=== PATIENT | female | born 1975 | race Caucasian/White ===

== ENCOUNTER 2017-03-08 11:22 | Emergency (ER) | payer OTHER ==
[2017-03-08 11:45] VITALS: BP 156/88; PULSE 83; TEMP 98.2; BMI 33.9
[2017-03-08] MEDS ORDERED: IBUPROFEN 600 MG TABLET (FP) PO ONE ×2 (12:46→12:49)
--- NOTE | 2017-03-08 12:48 | PDOC ---
History of Present Illness - General Chief Complaint: Chronic pain Stated Complaint: LT KNEE PAIN Time Seen by Provider: 03/08/17 12:09 History Source: Patient Exam Limitations: No Limitations - History of Present Illness Initial Comments: 03/08/17 12:56 While at work, [employer],, Turned to reach for something and felt an acute onset of left knee pain. States pain is primarily on the inner aspect of left knee. Occurred: reports: just prior to arrival, this morning Severity: reports: mild, moderate Pain Location: reports: lower extremity (left knee ) Method of Injury: Yes: unknown Loss of Consciousness: no loss of consciousness Associated Symptoms (Fall): denies symptoms Past History - Travel Traveled outside of the country in the last 30 days: No Close contact w/someone who was outside of country & ill: No - Past Medical History Allergies/Adverse Reactions: Allergies Allergy/AdvReac Type Severity Reaction Status Date / Time No Known Drug Allergies Allergy Verified 03/08/17 11:39 Home Medications: Ambulatory Orders Naproxen [Naprosyn -] 500 mg PO BID #14 tablet 03/08/17 Anemia: No Asthma: No Cancer: No Cardiac Disorders: No CVA: No COPD: No CHF: No Dementia: No Diabetes: No GI Disorders: No Disorders: Yes (renal calculi) HTN: No Hypercholesterolemia: No Liver Disease: No Seizures: No Thyroid Disease: No - Surgical History Abdominal Surgery: No Appendectomy: No Cardiac Surgery: No Cholecystectomy: Yes Lung Surgery: No Neurologic Surgery: No Orthopedic Surgery: No - Suicide/Smoking/Psychosocial Hx Smoking History: Never smoked Have you smoked in the past 12 months: No Hx Alcohol Use: No Drug/Substance Use Hx: No Substance Use Type: None Hx Substance Use Treatment: No Trauma Specific PMHX - Complaint Specific PMHX Arthritis: No Back Injury: No Review of Systems - Review of Systems Able to Perform ROS?: Yes Is the patient limited Montserratian proficient: Yes Constitutional: Yes: See HPI. No: Symptoms Reported HEENTM: No: Symptoms Reported Musculoskeletal: Yes: Symptoms Reported, See HPI, Joint Swelling, Joint Stiffness (left knee ) All Other Systems: Reviewed and Negative *Physical Exam - Vital Signs Last Vital Signs Temp Pulse Resp BP Pulse Ox 98.2 F 83 20 156/88 98 03/08/17 11:39 03/08/17 11:39 03/08/17 11:39 03/08/17 11:39 03/08/17 11:39 - Physical Exam General Appearance: Yes: Nourished, Appropriately Dressed, Apparent Distress, Mild Distress HEENT: positive: MARICRUZ, Normal ENT Inspection, TMs Normal, Pharynx Normal Neck: positive: Supple. negative: Tender Respiratory/Chest: positive: Lungs Clear, Normal Breath Sounds. negative: Chest Tender Gastrointestinal/Abdominal: positive: Soft Musculoskeletal: positive: Normal Inspection, Other (pain to medial collat ligament at insertion to upper aspect. With pain reproduced on varus maneuver. Neurovascular intact distal to injury. Patella is mobile, without crepitus or step-offs, however knee capsule is mildly swollen. Unable to examine anterior drawer test.) Extremity: positive: Normal Capillary Refill, Normal Range of Motion. negative : Normal Inspection Integumentary: positive: Normal Color, Warm, Pale Neurologic: positive: tear down matcher II-XII NML intact, Fully Oriented, Alert, Normal Mood/ Affect, Normal Response, Motor Strength 09/10 ED Treatment Course - RADIOLOGY Radiology Studies Ordered: Category Date Time Status KNEE 3 POS-LEFT [RAD] Stat Radiology 03/08/17 12:47 Ordered Progress Note - Progress Note Progress Note: Left knee sprain, we'll treat with NSAIDs, immobilizer and have follow up with Orth0 *DC/Admit/Observation/Transfer Diagnosis at time of Disposition: Sprain of left knee Qualifiers: Encounter type: initial encounter Involved ligament of knee: medial collateral ligament Qualified Code(s): S83.412A - Sprain of medial collateral ligament of left knee, initial encounter - Discharge Dispostion Disposition: HOME Condition at time of disposition: Stable Admit: No - Prescriptions Prescriptions: Naproxen [Naprosyn -] 500 mg PO BID #14 tablet - Referrals Referrals: Maria Del Rosario Villegas [Primary Care Provider] - Tavon Elizondo MD [Staff Physician] - - Patient Instructions Printed Discharge Instructions: DI for Knee Sprain Additional Instructions: Rest, ice to area on and off for 15 minutes 4-6 times a day Avoid heavy lifting or exercise until pain and swelling is resolved or until further directed Keep area highly elevated to reduce swelling Use splints/Garfield wrap as directed Followup with orthopedist in one to 2 days if not improving, if significantly improved may wait one week for followup with orthopedist May use ibuprofen 2-200 mg tablets every 6 hours as needed for pain - Post Discharge Activity Forms/Work/School Notes: Back to Work
== END 2017-03-08 13:10 | disposition home or self-care (01) ==
LOC: JERFT 11:22
PROC: 2W3RXYZ Immobilization of Left Lower Leg using Other Device (ICD-10-PCS; principal; 2017-03-08)
DX: S83.412A Sprain of medial collateral ligament of left knee, initial encounter (principal); X50.1XXA Overexertion from prolonged static or awkward postures, initial encounter; Y93.89 Activity, other specified; Y92.89 Other specified places as the place of occurrence of the external cause; Y99.0 Civilian activity done for income or pay
CPT/HCPCS: 73562-TC-LT; 99281-25

== ENCOUNTER 2017-08-23 00:36 | Emergency (ER) | payer BC ==
[2017-08-23 00:43] VITALS: BP 154/89; PULSE 90; TEMP 98.5; BMI 35.5
[2017-08-23] MEDS ORDERED: KETOROLAC TROMETHAMINE 60 MG/2 ML VIAL IM ONE (00:47)
[2017-08-23] MEDS ORDERED: KETOROLAC TROMETHAMINE 60 MG/2 ML VIAL ONE (00:48)
--- NOTE | 2017-08-23 00:50 | PDOC ---
History of Present Illness - General Chief Complaint: Pain, Acute Stated Complaint: PAIN JAW LINE X 4 HOURS Time Seen by Provider: 08/23/17 00:44 History Source: Patient Exam Limitations: No Limitations (or) - History of Present Illness Initial Comments: 08/23/17 00:47 This is a 42-year-old female who comes in complaining of pain in the left side of her face radiating towards her head. Patient denies any trauma or injury. Patient said she had sudden onset of the pain. Patient took some Percocet and Aleve for the improvement in her symptoms. Patient otherwise is healthy and denies any fevers or chills, nausea vomiting or diarrhea. PAST MEDICAL HISTORY: no significant history PAST SURGICAL HISTORY: no significant history FAMILY HISTORY: no pertinant history SOCIAL HISTORY: Pt lives with family and is employed. MEDICATIONS: reviewed ALLERGIES: As per nursing notes Review of Systems General: No fevers or chills, no weakness, no weight loss HEENT: No change in vision. No sore throat,. No ear pain CardioVascular: No chest pain or shortness of breath Respiratory:No cough, or wheezing. Gastrointestinal: no nausea, vomitting, diarrhea or constipation, No rectal bleeding Genitourinary: No dysuria, hematuria, or frequency Musculoskeletal: No joint or muscle pain or swelling Neurologic: No headache, vertigo, dizziness or loss of consciousness Psychiatric: nor depression Skin: No rashes or easy bruising Endocrine: no increased thirst or abnormal weight change Allergic: no skin or latex allergy All other systems reviewed and normal GENERAL: The patient is awake, alert, and fully oriented, in no acute distress. HEAD: Normal with no signs of trauma. MOUTH: There is no pain on palpation of the teeth or jaw. There is no tenderness swelling or increase in warmth. EYES: Pupils equal, round and reactive to light, extraocular movements intact, sclera anicteric, conjunctiva clear. EXTREMITIES: Normal range of motion, no edema. NEUROLOGICAL: Normal speech, normal gait. grossly intact PSYCH: Normal mood, normal affect. SKIN: Warm, Dry, normal turgor, no rashes or lesions noted. Assessment and plan: This is a 42-year-old female comes in complaining in the left side of her face. It is uncertain as to the etiology of the pain however she appears to be comfortable. Emergency room. She was given a shot of Toradol and discharged home to told to follow-up with the dentist to the morning. Past History - Past Medical History Allergies/Adverse Reactions: Allergies Allergy/AdvReac Type Severity Reaction Status Date / Time No Known Drug Allergies Allergy Verified 08/23/17 00:37 Home Medications: Ambulatory Orders NK [No Known Home Medication] 08/23/17 Anemia: No Asthma: No Cancer: No Cardiac Disorders: No CVA: No COPD: No CHF: No Dementia: No Diabetes: No GI Disorders: No Disorders: Yes (renal calculi) HTN: No Hypercholesterolemia: No Liver Disease: No Seizures: No Thyroid Disease: No - Surgical History Abdominal Surgery: No Appendectomy: No Cardiac Surgery: No Cholecystectomy: Yes Lung Surgery: No Neurologic Surgery: No Orthopedic Surgery: No - Suicide/Smoking/Psychosocial Hx Smoking History: Never smoked Have you smoked in the past 12 months: No Information on smoking cessation initiated: No Hx Alcohol Use: No Drug/Substance Use Hx: No Substance Use Type: None Hx Substance Use Treatment: No Trauma Specific PMHX - Complaint Specific PMHX Arthritis: No Back Injury: No *Physical Exam - Vital Signs Last Vital Signs Temp Pulse Resp BP Pulse Ox 98.5 F 90 16 154/89 99 08/23/17 00:39 08/23/17 00:39 08/23/17 00:39 08/23/17 00:39 08/23/17 00:39 *DC/Admit/Observation/Transfer Diagnosis at time of Disposition: Mouth pain - Discharge Dispostion Disposition: HOME Condition at time of disposition: Stable Admit: No - Referrals - Patient Instructions Additional Instructions: If pain worsens U can take Tylenol or Motrin.. Return to the emergency department immediately with ANY new, persistent or worsening symptoms. Continue any medications as previously prescribed by your physician. You should follow up with your primary doctor as soon as possible regarding today's emergency department visit. . Please make sure your doctor reviews the results of your emergency evaluation. Thank you for coming to the Emergency Department today for your care. It was a pleasure to see you today. Please note that your evaluation is INCOMPLETE until you follow-up with your doctor. - Post Discharge Activity
== END 2017-08-23 00:52 | disposition home or self-care (01) ==
LOC: FER 00:36
PROC: 3E0233Z Introduction of Anti-inflammatory into Muscle, Percutaneous Approach (ICD-10-PCS; principal; 2017-08-23)
DX: K13.79 Other lesions of oral mucosa (principal)
CPT/HCPCS: 99281-25

== ENCOUNTER 2019-02-14 06:32 | Day surgery (SDC) | payer BC ==
--- NOTE | 2019-02-08 09:24 | HP ---
DATE OF ADMISSION: 02/14/2019 REASON FOR ADMISSION: Soft tissue mass on the back. BRIEF HISTORY: This is a 43-year-old female who noted soft tissue mass on her left back for over 6 months now. The mass has gotten doubled in size over this six-month time course, and it is causing her discomfort at this point. She wishes to have this removed and tested to rule out for carcinoma. PAST MEDICAL HISTORY: No coronary artery disease, hypertension, or diabetes. PAST SURGICAL HISTORY: Cholecystectomy. Surgery of the foot. Sphincterotomy. ALLERGIES: None. 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 She does not smoke. No history of drug use. She drinks socially. MEDICATION: None. ALLERGIES: None. PHYSICAL EXAMINATION: BACK: Patient has a soft tissue mass the size of larger than a golf ball on the left lobe back. It is approximately 2-3 fingerbreadths to the left of the midline, and 4 fingerbreadths above the anterior iliac crest. The mass is soft, fixed posteriorly, no overlying skin changes, fairly well demarcated. IMPRESSION/PLAN: Soft tissue mass in the back: This is a 43-year-old female with doubling in size of soft tissue mass of the back. This doubling occurred in six months' time course. She now has pain in the area. 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 However, a liposarcoma cannot be entirely ruled out. Therefore I agree with this patient and should have this excised. The indications, alternatives, and complications of procedure discussed. Questions answered. Will plan on obtaining written consent the day of surgery. HUSSEIN CHOU M.D. [id number]
[2019-02-12 17:28] VITALS: BMI 38.7
[2019-02-14] MEDS ORDERED: ceFAZolin SODIUM 1 GM VIAL ONE ×2 (07:02→08:10)
[2019-02-14] MEDS ORDERED: MIDAZOLAM HCL 2 MG/2 ML SINGLE DOSE VIAL ONE ×2 (07:19→08:05)
[2019-02-14] MEDS ORDERED: SUCCINYLCHOLINE CHLORIDE 200 MG/10 ML SYRINGE ONE (07:19)
[2019-02-14] MEDS ORDERED: PROPOFOL 20 ML ONE (07:19)
[2019-02-14] MEDS ORDERED: LIDOCAINE 1%-EPI 1:100,000 30 ML MDV IJ ONE (07:23)
[2019-02-14] MEDS ORDERED: BUPIVACAINE HCL/PF 0.5% (5 MG/ML) 30 ML VIAL IJ ONE (07:24)
[2019-02-14] MEDS ORDERED: LIDOCAINE HCL 1%, 10 MG/ML (20ML VIAL) ONE (07:54)
[2019-02-14] MEDS ORDERED: BUPIVACAINE HCL/PF 0.25% (2.5MG/ML) 10 ML VIAL ONE (07:59)
[2019-02-14] MEDS ORDERED: DEXAMETHASONE SOD PHOSPHATE/PF 10 MG/ML SDV ONE (07:59)
[2019-02-14] MEDS ORDERED: ceFAZolin SODIUM 1 GM VIAL IVPB ONE ×2 (08:15)
[2019-02-14] MEDS ORDERED: LIDOCAINE HCL 1%, 10 MG/ML (20ML VIAL) NR ONE ×2 (08:20)
[2019-02-14] MEDS ORDERED: BUPIVACAINE HCL/PF 0.25% (2.5MG/ML) 10 ML VIAL IJ ONE (08:20)
[2019-02-14] MEDS ORDERED: DEXAMETHASONE SOD PHOSPHATE 10 MG/1 ML VIAL IVPUSH ONE (08:21)
[2019-02-14 08:51] VITALS: TEMP 97.7
[2019-02-14] MEDS ORDERED: oxyCODONE HCL 5 MG TABLET PO PRN (10:06)
[2019-02-14] MEDS ORDERED: ONDANSETRON 4 MG/2 ML VIAL IVPUSH PRN (10:06)
[2019-02-14] MEDS ORDERED: LACTATED RINGERS SOLUTION 1,000 ML IV SCH (10:15)
--- NOTE | 2019-02-14 10:33 | OP ---
DATE OF OPERATION: 02/14/2019 PREOPERATIVE DIAGNOSIS: Soft tissue mass of the back, suspect intramuscular lipoma. POSTOPERATIVE DIAGNOSIS: Intramuscular lipoma. PROCEDURE: Excision of intramuscular lipoma with 8-cm intermediate wound closure. SURGEON: Quinn Loomis MD FINANCE ANALYST: None. ANESTHESIA: Jayda Wall MD (MAC/1% lidocaine without epinephrine approximately 10 mL and 20 mL of 0.25% Marcaine with 4 mg of Decadron). ESTIMATED BLOOD LOSS: Minimal. SPECIMENS: Lipoma. INDICATION FOR PROCEDURE: This is a 44-year-old female with a soft tissue mass in the left lower [id number] back. It is causing her discomfort. She wishes to have this removed. DESCRIPTION OF PROCEDURE: Patient identified and appropriately positioned on the operating room table. After placement of IV sedation, the back prepped and draped in usual sterile fashion with ChloraPrep, 1% lidocaine without epinephrine was used for anesthesia approximately 10 mL. An 8-cm incision overlying the mass was deepened to subcutaneous tissue. You could see the mass protruding through the attenuated fascia of the musculature. This mass clearly was an intramuscular lipoma. The attenuated fascia was sharply divided. The mass then teased out of the musculature. Hemostasis achieved with cautery as needed. The mass was handed off en bloc. Next, the fascia of the muscle was then subsequently injected with a total of 20 mL of 0.25% Marcaine with 4 mg of Decadron given as a local block. Next, the musculature was then reapproximated with interrupted 3-0 chromic sutures. [place] was reapproximated with interrupted inverted 3-0 Vicryl sutures and the skin closed with interrupted vertical mattress 3-0 Prolenes. Length of incision 8 cm. At the conclusion of this case, sponge counts correct. ATTESTATION: Brief operative note handwritten on the preprinted form. [facility] queried prior to giving narcotics. Steph SPRAGUE [id number]
[2019-02-14 10:44] VITALS: BP 120/70; PULSE 80
--- NOTE | 2019-02-15 18:10 | PATH ---
Surgical Pathology Report Patient Name: JARRETT GUTIERREZ [facility]. Rec. #: [id number] /Age/Gender: 1975 (Age: 44) / F Account: [id number] Location: U SURGICAL Taken: 02/14/2019 Received: 02/14/2019 Reported: 02/15/2019 Physicians: Quinn Loomis Specimen(s) Received LEFT BACK MASS Clinical History Benign neoplasm of connective and soft tissue of trunk Final Diagnosis MASS, BACK, LEFT, EXCISION: MATURE FIBROADIPOSE TISSUE CONSISTENT WITH LIPOMA. Electronically Signed Jennifer Henao M.D. Gross Description Received in formalin labeled "mass of left back" is a lobulated, thinly encapsulated fibroadipose tissue measuring 4.5 x 3 x 2 cm. Sectioning is yellow fatty and grossly unremarkable. No necrosis or hemorrhage identified. Rn Orthopaedic sections are submitted in one cassette. MLAnaliZ/02/14/2019 sanjuan/02/14/2019
== END 2019-02-14 10:44 | disposition home or self-care (01) ==
LOC: JASU-SURG 06:32
PROVIDERS: ATTEND Surgery
PROC: 0KBG0ZZ Excision of Left Trunk Muscle, Open Approach (ICD-10-PCS; principal; 2019-02-14 08:00)
DX: D17.9 Benign lipomatous neoplasm, unspecified (principal)
CPT/HCPCS: 84703; J1100

== ENCOUNTER 2019-03-11 09:29 | Emergency (ER) | payer BC, OTHER ==
[2019-03-11 09:36] VITALS: BMI 37.1
[2019-03-11] MEDS ORDERED: SODIUM CHLORIDE 1,000 ML IV ONE (09:48)
[2019-03-11] MEDS ORDERED: ACETAMINOPHEN 1000 MG/100 ML VIAL (NON FORMULARY) IVPB ONE (09:50)
[2019-03-11] MEDS ORDERED: ACETAMINOPHEN INJECTION 100 ML IVPB ONE (09:51)
--- NOTE | 2019-03-11 09:51 | PDOC ---
History of Present Illness - General Chief Complaint: Pain, Acute Stated Complaint: KIDNEY STONES Time Seen by Provider: 03/11/19 09:47 - History of Present Illness Initial Comments: 03/11/19 10:07 Pt is a 44 y/o F with a PMH of nephrolithiasis (lithotripsy ~5 years ago) who presents to [facility] due to right flank pain. Pt endorses that she began to experience excruciating pain at around 1:30 this morning. Pt states that pain is described as sharp in nature, 10/10 in pain severity at its zenith and radiates to her right groin. Pt endorses she took a hydromorphone pill when the pain commenced; this mitigated her pain for a while however pt still had pain and this is what prompted her to come to our Emergency department. Pt has vomited multiple times since pain commenced. Pt does endorse having had kidney stones in the past, approximately 5 years ago. States she underwent a lithotripsy. Pt does state she has been on a high-protein weight loss diet. Denies fever or chills. Endorses nausea and vomiting. SurgHx- Cholecystectomy, Lipoma removal, Knee surgery SocialHx- Denies Tobacco or Alcohol use NKDA FH- CAD, HTN, DM on both sides of family. +Kidney stones Mother. Past History - Past Medical History Allergies/Adverse Reactions: Allergies Allergy/AdvReac Type Severity Reaction Status Date / Time No Known Drug Allergies Allergy Verified 03/11/19 09:36 Home Medications: Ambulatory Orders Cephalexin [Keflex] 500 mg PO BID #14 capsule 03/11/19 Norethindrone-E.estradiol-Iron [Lo Loestrin Fe 1-10 Tablet] 1 tab PO DAILY 03/11 Ondansetron HCl [Zofran] 4 mg PO Q8H PRN #10 tablet 03/11/19 Phentermine HCl 1 tab PO DAILY 03/11/19 Tamsulosin HCl [Flomax] 0.4 mg PO DAILY #10 cap.er.24h 03/11/19 Anemia: No Asthma: No Cancer: No Cardiac Disorders: No CVA: No COPD: No CHF: No Dementia: No Diabetes: No GI Disorders: No Disorders: Yes (renal calculi) HTN: No Hypercholesterolemia: No Liver Disease: No Seizures: No Thyroid Disease: No - Surgical History Abdominal Surgery: No Appendectomy: No Cardiac Surgery: No Cholecystectomy: Yes Lung Surgery: No Neurologic Surgery: No Orthopedic Surgery: Yes (right knee arthroscopy x 2) - Psycho Social/Smoking Cessation Hx Smoking History: Never smoked Have you smoked in the past 12 months: No Hx Alcohol Use: No (social) Drug/Substance Use Hx: No Substance Use Type: None Hx Substance Use Treatment: No Review of Systems - Review of Systems Able to Perform ROS?: Yes Is the patient limited Maori proficient: No Constitutional: No: Chills, Fever Respiratory: No: Shortness of Breath Cardiac (ROS): No: Chest Pain ABD/GI: Yes: Nausea, Other : Yes: Flank Pain (Right Flank Pain ) *Physical Exam - Vital Signs Last Vital Signs Temp Pulse Resp BP Pulse Ox 97.7 F 89 18 148/64 99 03/11/19 09:34 03/11/19 09:34 03/11/19 09:34 03/11/19 09:34 03/11/19 09:34 - Physical Exam Comments: 03/11/19 10:22 AAOx3, Moderate Distress EOMI Sclera Clear RRR S1S2 CTA b/l ++R CVA tenderness. No guarding or rebound appreciated. ED Treatment Course - LABORATORY CBC & Chemistry Diagram: 03/11/19 09:56 03/11/19 09:56 Medical Decision Making - Medical Decision Making 03/11/19 10:03 DDx includes but not limited to Nephrolithiasis, appendicitis, ovarian torsion. Routine labs ordered: CBC w/ diff, CMP, Serum preg, Urine culture Will order ofirmev and 2 mg morphine for analgesia 03/11/19 10:07 Will order CTAP once preg ruled out 03/11/19 10:13 Will order 2 mg more of morphine as pt with excruciating pain. 03/11/19 10:20 Will add Zofran as pt nauseas 03/11/19 12:13 CTAP--> Right obstructing 5.5x4 cm stone UVJ with resulting hydro. Urology Contacted. 03/11/19 12:15 Pt endorsing pain is reoccurring. Will administer another 2 mg Morphine. 03/11/19 12:26 Spoke with Urology. Will administer 1 gm ceftriaxone and continue to control pain. Pt can be d/c'ed and to follow up in am with Dr Mcghee . 03/11/19 12:30 Will send patient home with 1 tab bid 500 mg for 14 days keflex, flomax 0.4 daily,and zofran for nausea 03/11/19 12:34 Discharge - Discharge Information Problems reviewed: Yes Clinical Impression/Diagnosis: Kidney calculi Condition: Improved Disposition: HOME - Admission No - Additional Discharge Information Prescriptions: Cephalexin [Keflex] 500 mg PO BID #14 capsule Ondansetron HCl [Zofran] 4 mg PO Q8H PRN #10 tablet PRN Reason: Nausea And/Or Vomiting Tamsulosin HCl [Flomax] 0.4 mg PO DAILY #10 cap.er.24h - Follow up/Referral Referrals: Aaron Villegas MD [Primary Care Provider] - Max Mckay MD [Staff Physician] - - Patient Discharge Instructions Additional Instructions: You were treated in the Emergency Room for a kidney stone. We have sent an antibiotic prescription, a anti-nausea medication, and a medication to help you pass your stone. It is very important for you to see your Urologist, Dr Mcghee tomorrow. A referral has been provided for you in your discharge papers. Please return to the ER if you begin to develop fevers or your symptoms progress or worsen. - Post Discharge Activity
[2019-03-11] MEDS ORDERED: ONDANSETRON 4 MG/2 ML VIAL ONE (10:02)
[2019-03-11] MEDS ORDERED: MORPHINE SULFATE 2 MG/ML VIAL ONE ×3 (10:02→12:18)
[2019-03-11] MEDS ORDERED: morphine CARPU-JECT 4 MG/1 ML DISP.SYRIN IVPUSH ONE (10:03)
[2019-03-11 10:09] LABS: BASO % 0.5 % (0-2.0); EOS % 0.3 % (0-4.5); HEMATOCRIT 40.5 % (32.4-45.2); HEMOGLOBIN 14.1 GM/dL (10.7-15.3); LYMPH % 14.4 % (8-40); MCH 30.9 pg (25.7-33.7); MCHC 34.9 g/dl (32.0-36.0); MEAN CELL VOLUME 88.7 fl (80-96); MEAN PLT VOLUME 7.7 fl (7.5-11.1); MONO % 5.5 % (3.8-10.2); NEUT % 79.3 % (42.8-82.8); PLATELET COUNT 303 K/MM3 (134-434); RBC 4.57 M/mm3 (3.60-5.2); RDW 13.7 % (11.6-15.6); WHITE BLOOD COUNT 12.6 K/mm3 (4.0-10.0)
[2019-03-11] MEDS ORDERED: morphine CARPU-JECT 2 MG/1 ML DISP.SYRIN IVPUSH ONE ×2 (10:13→12:15)
[2019-03-11] MEDS ORDERED: ONDANSETRON 4 MG/2 ML VIAL IVPUSH ONE (10:20)
[2019-03-11] MEDS ORDERED: KETOROLAC TROMETHAMINE 30 MG/1 ML VIAL IVPUSH ONE (10:22)
[2019-03-11 10:35] LABS: ALBUMIN 3.9 g/dl (3.4-5.0); BILIRUBIN,TOTAL 0.4 mg/dL (0.2-1); BLOOD UREA NITROGEN 16.7 mg/dL (7-18); POTASSIUM 4.2 mmol/L (3.5-5.1); TOT PROT 7.4 g/dl (6.4-8.2)
--- NOTE | 2019-03-11 10:42 | PDOC ---
Documentation entered by Julian Andrade SCRIBE, acting as scribe for Adelia Woody DO. Adelia Woody DO: This documentation has been prepared by the Raymond hernandez Daniel, SCRIBE, under my direction and personally reviewed by me in its entirety. I confirm that the documentation accurately reflects all work, treatment, procedures, and medical decision making performed by me. Attending Attestation - Resident Resident Name: Mumtaz Donaldson - ED Attending Attestation I have performed the following: I have examined & evaluated the patient, The case was reviewed & discussed with the resident, I agree w/resident's findings & plan, Exceptions are as noted - HPI HPI: 03/11/19 10:33 The patient is a 44 year old female with a past medical history of nephrolithiasis (last episode 5 years ago) here today for evaluation of right flank pain. The patient reports that she has been on a keto diet for the past couple of months and woke up around 1:30 AM today with right flank pain and urinary urgency. She also notes a couple episodes of non bloody non bilious vomiting and dysuria. Patient has needed lithotripsy in the past. Patient denies headache, lightheadedness. Denies fever, chills. Denies chest pain, shortness of breath. Denies diarrhea. Allergies: NKDA PCP: Aaron Villegas Urologist: Jose Tubbs - Physicial Exam PE: 03/11/19 10:33 Constitutional: Awake, alert, oriented. No acute distress. Head: Normocephalic. Atraumatic Eyes: PERRL. EOMI. Conjunctivae are not pale. ENT: Mucous membranes are moist and intact. Posterior pharynx without exudates or erythema. Uvula midline. Neck: Supple. Full ROM. No lymphadenopathy. Cardiovascular: Regular rate. Regular rhythm. S1, S2 regular. Distal pulses are 2+ and symmetric. Pulmonary/Chest: No evidence of respiratory distress. Clear to auscultation bilaterally No wheezing, rales or rhonchi. Abdominal: +right lower quadrant and right flank tenderness. Soft and non- distended. No rebound, guarding or rigidity. No organomegaly. No palpable masses. Good bowel sounds. Back: +right CVA tenderness. Musculoskeletal: No edema. No cyanosis. No clubbing. Full range of motion in all extremities. Nocalf tenderness. Radial/pedal pulses are intact and 2+ bilaterally Skin: Skin is warm and dry. No petechiae. No purpura. Neurological: Alert and oriented to person, place, and time. Cranial nerves II -XII are grossly intact. Normal speech. Strength is grossly symmetric. No sensory deficits. Psychiatric: Good eye contact. Normal interaction, affect and behavior. - Medical Decision Making 03/11/19 10:39 I, Dr. Adelia Woody, DO, attest that this document has been prepared under my direction and personally reviewed by me in its entirety. I further attest, that it accurately reflects all work, treatment, procedures and medical decision -making performed by me. a/p: 44yo female with hx of nephrolithiasis - last stone 5 years ago -follows with DR. Landon -R flank pain - acute onset -suspect renal colic -urinary hesitancy/denies dysuria or hematuria - states ending her menstrual cycle -assoc with n/v -will send labs, ct abd/pelvis -pain control, ivf hydration, flomax if stone low down in ureter 03/11/19 10:49 renal function normal, mildly elevated wbc most likely 2nd to pain ua pending preg neg pt to spiral ct 03/11/19 12:20 5.5mm stone obstructing at UVJ - will add flomax and rocephin resident discussed the case with Dr. Mckay who recommends strain all urine and follow up tomorrow 03/11/19 12:46 pt states feeling better stable for dc to home and follow up with urology tomorrow
[2019-03-11] MEDS ORDERED: KETOROLAC TROMETHAMINE 30 MG/1 ML VIAL ONE (10:47)
[2019-03-11 11:27] LABS: EPI CELLS 5.1 /HPF (0-5/HPF); HYALINE CASTS 1 /lpf (0-8); PH,URINE 6.5 (5.0-8.0); URINE APPEARANCE CLEAR; URINE BACTERIA 57.6 /hpf (NEGATIVE); URINE BILIRUBIN NEGATIVE (NEGATIVE); URINE COLOR YELLOW; URINE GLUCOSE (UA) NEGATIVE (NEGATIVE); URINE KETONE 1+ (NEGATIVE); URINE LEUK ESTERASE NEGATIVE (NEGATIVE); URINE NITRITE NEGATIVE (NEGATIVE); URINE PROTEIN NEGATIVE (NEGATIVE); URINE RBC 7 /hpf (0-4); URINE UROBILINOGEN 0.2 mg/dL (0.2-1.0); URINE WBC 3 /hpf (0-5)
[2019-03-11 12:16] VITALS: BP 120/77; PULSE 75; TEMP 98
[2019-03-11] MEDS ORDERED: TAMSULOSIN HCL 0.4 MG CAP PO ONE (12:20)
[2019-03-11] MEDS ORDERED: CEFTRIAXONE 1 GM in DEXTROSE 5%-WATER - 100 ML IVPB ONE (12:21)
[2019-03-11] MEDS ORDERED: TAMSULOSIN HCL 0.4 MG CAP ONE (12:29)
[2019-03-11] MEDS ORDERED: CEFTRIAXONE 1 GM/50 ML BAG ONE (12:30)
== END 2019-03-11 13:07 | disposition home or self-care (01) ==
LOC: JER 09:29
PROC: 3E03329 Introduction of Other Anti-infective into Peripheral Vein, Percutaneous Approach (ICD-10-PCS; principal; 2019-03-11)
PROC: 3E033NZ Introduction of Analgesics, Hypnotics, Sedatives into Peripheral Vein, Percutaneous Approach (ICD-10-PCS; 2019-03-11)
PROC: 3E0333Z Introduction of Anti-inflammatory into Peripheral Vein, Percutaneous Approach (ICD-10-PCS; 2019-03-11)
PROC: 3E033GC Introduction of Other Therapeutic Substance into Peripheral Vein, Percutaneous Approach (ICD-10-PCS; 2019-03-11)
PROC: 3E033NZ Introduction of Analgesics, Hypnotics, Sedatives into Peripheral Vein, Percutaneous Approach (ICD-10-PCS; 2019-03-11)
DX: N13.2 Hydronephrosis with renal and ureteral calculous obstruction (principal); Z87.442 Personal history of urinary calculi
CPT/HCPCS: 36415; 74176-TC; 80053; 81003; 84703; 85025; 87086; 99284-25; J0131; J7030

== ENCOUNTER 2020-12-12 15:13 | Inpatient (IN) | payer BC, OTHER ==
[2020-12-12] MEDS ORDERED: DEXAMETHASONE SOD PHOSPHATE 10 MG/1 ML VIAL IVPUSH ONE (15:26)
[2020-12-12] MEDS ORDERED: DEXAMETHASONE SOD PHOSPHATE 10 MG/1 ML VIAL ONE (15:40)
[2020-12-12 16:02] LABS: VENOUS BASE EXCESS 3.8 mmol/L (-2-2); VENOUS O2 SATURATION 29.5 % (70-80); VENOUS PCO2 32.9 mmHg (38-52); VENOUS PH 7.518 (7.310-7.410)
[2020-12-12 16:04] LABS: BASO % 0.2 % (0-2.0); HEMATOCRIT 42.8 % (32.4-45.2); HEMOGLOBIN 14.9 GM/dL (10.7-15.3); LYMPH % 24.9 % (8-40); MCH 30.2 pg (25.7-33.7); MCHC 34.9 g/dl (32.0-36.0); MEAN CELL VOLUME 86.7 fl (80-96); MONO % 8.5 % (3.8-10.2); NEUT % 66.4 % (42.8-82.8); PLATELET COUNT 226 10^3/uL (134-434); RBC 4.94 M/mm3 (3.60-5.2); RDW 13.2 % (11.6-15.6); WHITE BLOOD COUNT 3.5 K/mm3 (4.0-10.0)
[2020-12-12 16:10] LABS: INR 1.12 (0.83-1.09); PROTHROMBIN TIME (PATIENT) 13.5 SEC (9.7-13.0)
[2020-12-12 16:13] LABS: ACTIVATED PTT 30.2 SECONDS (25.2-36.5)
[2020-12-12 16:21] LABS: CHLORIDE 103 mmol/L (98-107); SODIUM 139 mmol/L (136-145)
[2020-12-12 16:24] LABS: ALBUMIN 3.4 g/dl (3.4-5.0); ANION GAP 11 MMOL/L (8-16); BLOOD UREA NITROGEN 8.1 mg/dL (7-18); CO2 25 mmol/L (21-32); GLUCOSE,RANDOM 110 mg/dL (74-106)
[2020-12-12 16:27] LABS: CREATININE 0.8 mg/dL (0.55-1.3); SGOT/AST 217 U/L (15-37); SGPT/ALT 149 U/L (13-61)
[2020-12-12 16:28] LABS: BILIRUBIN,TOTAL 0.5 mg/dL (0.2-1); LDH 429 U/L (84-246); TOT PROT 7.8 g/dl (6.4-8.2)
[2020-12-12 16:30] LABS: ALK PHOS 112 U/L (45-117)
[2020-12-12 16:32] LABS: N-TERMINAL BNP 36.6 pg/ml (5-125)
[2020-12-12] MEDS ORDERED: ONDANSETRON 4 MG/2 ML VIAL IVPUSH ONE (16:39)
[2020-12-12] MEDS ORDERED: ONDANSETRON 4 MG/2 ML VIAL ONE (16:50)
[2020-12-12 21:45] LABS: CALCIUM 7.9 mg/dL (8.5-10.1)
[2020-12-12 21:46] LABS: ALBUMIN 3.2 g/dl (3.4-5.0); BLOOD UREA NITROGEN 8.6 mg/dL (7-18); MAGNESIUM 2.1 mg/dL (1.8-2.4)
[2020-12-12 21:49] LABS: CREATININE 0.6 mg/dL (0.55-1.3)
[2020-12-12 21:50] LABS: BILIRUBIN,TOTAL 0.4 mg/dL (0.2-1); TOT PROT 7.2 g/dl (6.4-8.2)
[2020-12-12] MEDS: SODIUM CHLORIDE 0.9%/KCL 20 MEQ/1,000 ML INFUS.BAG IV SCH (22:55)
[2020-12-12] MEDS: KCL 10 MEQ IVPB 10 MEQ/100 ML INFUS.BAG IVPB SCH (22:55)
[2020-12-13] MEDS: KCL 10 MEQ IVPB 10 MEQ/100 ML INFUS.BAG IVPB SCH (00:40)
[2020-12-13] MEDS ORDERED: PHENTERMINE HCL 37.5 MG PO SCH (10:00)
[2020-12-13 10:05] LABS: BASO % 0.2 % (0-2.0); HEMATOCRIT 40.7 % (32.4-45.2); HEMOGLOBIN 14.1 GM/dL (10.7-15.3); LYMPH % 18.2 % (8-40); MCH 30.4 pg (25.7-33.7); MCHC 34.6 g/dl (32.0-36.0); MEAN CELL VOLUME 87.8 fl (80-96); MEAN PLT VOLUME 7.1 fl (7.5-11.1); MONO % 8.2 % (3.8-10.2); NEUT % 73.4 % (42.8-82.8); PLATELET COUNT 232 10^3/uL (134-434); RBC 4.64 M/mm3 (3.60-5.2); RDW 13.3 % (11.6-15.6); WHITE BLOOD COUNT 4.4 K/mm3 (4.0-10.0)
[2020-12-13 10:23] LABS: ALBUMIN 3.1 g/dl (3.4-5.0); BLOOD UREA NITROGEN 8.5 mg/dL (7-18); CALCIUM 7.9 mg/dL (8.5-10.1)
[2020-12-13 10:26] LABS: CREATININE 0.6 mg/dL (0.55-1.3)
[2020-12-13 10:28] LABS: BILIRUBIN,TOTAL 0.4 mg/dL (0.2-1)
[2020-12-13] MEDS ORDERED: REMDESIVIR 200 MG in SODIUM CHLORIDE 250 ML IVPB ONE (11:30)
[2020-12-13] MEDS: ENOXAPARIN NA (PORCINE) 40 MG/0.4 ML DISP.SYRIN SQ SCH (11:46)
[2020-12-13] MEDS: DEXAMETHASONE SOD PHOSPHATE 4 MG/1 ML VIAL IVPUSH SCH (11:46)
[2020-12-13] MEDS: SODIUM CHLORIDE 0.9%/KCL 20 MEQ/1,000 ML INFUS.BAG IV SCH (11:47)
[2020-12-13] MEDS: ONDANSETRON 4 MG/2 ML VIAL IVPUSH PRN (11:59)
[2020-12-14 08:17] LABS: BASO % 0.1 % (0-2.0); HEMATOCRIT 37.7 % (32.4-45.2); HEMOGLOBIN 12.8 GM/dL (10.7-15.3); LYMPH % 21.2 % (8-40); MCH 29.9 pg (25.7-33.7); MCHC 33.9 g/dl (32.0-36.0); MEAN PLT VOLUME 7.3 fl (7.5-11.1); NEUT % 71.7 % (42.8-82.8); PLATELET COUNT 229 10^3/uL (134-434); RBC 4.28 M/mm3 (3.60-5.2); RDW 13.7 % (11.6-15.6); WHITE BLOOD COUNT 5.9 K/mm3 (4.0-10.0)
[2020-12-14 08:30] LABS: BLOOD UREA NITROGEN 8.7 mg/dL (7-18)
[2020-12-14 08:33] LABS: CREATININE 0.5 mg/dL (0.55-1.3)
[2020-12-14 08:34] LABS: BILIRUBIN,TOTAL 0.5 mg/dL (0.2-1); TOT PROT 6.2 g/dl (6.4-8.2)
[2020-12-14 08:36] LABS: ALBUMIN 2.8 g/dl (3.4-5.0); CALCIUM 7.5 mg/dL (8.5-10.1)
[2020-12-14] MEDS: DEXAMETHASONE SOD PHOSPHATE 4 MG/1 ML VIAL IVPUSH SCH (10:41)
[2020-12-14] MEDS: REMDESIVIR 100 MG in SODIUM CHLORIDE 250 ML IVPB SCH (10:41)
[2020-12-14] MEDS: ENOXAPARIN NA (PORCINE) 40 MG/0.4 ML DISP.SYRIN SQ SCH (10:41)
[2020-12-14] MEDS: ONDANSETRON 4 MG/2 ML VIAL IVPUSH PRN (10:53)
[2020-12-14] MEDS: SODIUM CHLORIDE 0.9%/KCL 20 MEQ/1,000 ML INFUS.BAG IV SCH (10:53)
[2020-12-14] MEDS: SODIUM CHLORIDE 0.45%/POT 20 MEQ/1,000 ML INFUS.BAG IV SCH (17:19)
[2020-12-15] MEDS: SODIUM CHLORIDE 0.45%/POT 20 MEQ/1,000 ML INFUS.BAG IV SCH ×2 (06:54→21:54)
[2020-12-15 10:28] LABS: BASO % 0.1 % (0-2.0); EOS % 0.1 % (0-4.5); HEMATOCRIT 39.4 % (32.4-45.2); HEMOGLOBIN 13.3 GM/dL (10.7-15.3); LYMPH % 36.5 % (8-40); MCH 29.7 pg (25.7-33.7); MCHC 33.8 g/dl (32.0-36.0); MONO % 8.8 % (3.8-10.2); NEUT % 54.5 % (42.8-82.8); PLATELET COUNT 305 10^3/uL (134-434); RBC 4.48 M/mm3 (3.60-5.2); RDW 13.6 % (11.6-15.6); WHITE BLOOD COUNT 4.2 K/mm3 (4.0-10.0)
[2020-12-15] MEDS: DEXAMETHASONE SOD PHOSPHATE 4 MG/1 ML VIAL IVPUSH SCH (10:55)
[2020-12-15] MEDS: ENOXAPARIN NA (PORCINE) 40 MG/0.4 ML DISP.SYRIN SQ SCH (10:56)
[2020-12-15 10:57] LABS: ALBUMIN 3.1 g/dl (3.4-5.0); BLOOD UREA NITROGEN 8.4 mg/dL (7-18); CALCIUM 7.9 mg/dL (8.5-10.1)
[2020-12-15 11:00] LABS: CREATININE 0.6 mg/dL (0.55-1.3)
[2020-12-15 11:01] LABS: BILIRUBIN,TOTAL 0.4 mg/dL (0.2-1); TOT PROT 6.9 g/dl (6.4-8.2)
[2020-12-15] MEDS: REMDESIVIR 100 MG in SODIUM CHLORIDE 250 ML IVPB SCH (11:13)
[2020-12-16] MEDS ORDERED: PT OWN MED DRAWER 7, Y5N ONE ×3 (09:27→14:34)
[2020-12-16] MEDS: DEXAMETHASONE SOD PHOSPHATE 4 MG/1 ML VIAL IVPUSH SCH (09:37)
[2020-12-16] MEDS: ENOXAPARIN NA (PORCINE) 40 MG/0.4 ML DISP.SYRIN SQ SCH (09:37)
[2020-12-16] MEDS: SODIUM CHLORIDE 0.45%/POT 20 MEQ/1,000 ML INFUS.BAG IV SCH ×3 (09:38→15:18)
[2020-12-16] MEDS: guaiFENesin/D-M SUGAR-FREE/ACLHOL-FREE 118 ML BOTTLE PO PRN (09:38)
[2020-12-16 10:10] LABS: ALBUMIN 3.2 g/dl (3.4-5.0)
[2020-12-16 10:16] LABS: TOT PROT 6.9 g/dl (6.4-8.2)
[2020-12-16 10:18] LABS: BILIRUBIN,TOTAL 0.3 mg/dL (0.2-1)
[2020-12-16 10:22] LABS: BILIRUBIN,DIRECT 0.2 mg/dL (0.0-0.2)
[2020-12-16] MEDS ORDERED: CODEINE SO4 30 MG TABLET PO PRN (11:29)
[2020-12-16] MEDS: IBUPROFEN 400 MG TABLET (FP) PO PRN (12:09)
[2020-12-16] MEDS: REMDESIVIR 100 MG in SODIUM CHLORIDE 250 ML IVPB SCH (12:09)
[2020-12-16] MEDS ORDERED: ALBUTEROL SO4 HFA INHALER IH PRN (13:21)
[2020-12-16] MEDS: BUDESONIDE/FORMETEROL FUMARATE 160/4.5 mcg INHALER IH SCH ×2 (14:57→22:26)
[2020-12-17] MEDS: SODIUM CHLORIDE 0.45%/POT 20 MEQ/1,000 ML INFUS.BAG IV SCH (01:54)
[2020-12-17] MEDS ORDERED: PT OWN MED DRAWER 7, Y5N ONE (10:43)
[2020-12-17] MEDS: ENOXAPARIN NA (PORCINE) 40 MG/0.4 ML DISP.SYRIN SQ SCH (11:00)
[2020-12-17] MEDS: BUDESONIDE/FORMETEROL FUMARATE 160/4.5 mcg INHALER IH SCH ×2 (11:00→22:48)
[2020-12-17] MEDS: DEXAMETHASONE SOD PHOSPHATE 4 MG/1 ML VIAL IVPUSH SCH (11:00)
[2020-12-17] MEDS: REMDESIVIR 100 MG in SODIUM CHLORIDE 250 ML IVPB SCH (12:13)
[2020-12-18] MEDS ORDERED: PT OWN MED DRAWER 7, Y5N ONE (09:23)
[2020-12-18] MEDS: ENOXAPARIN NA (PORCINE) 40 MG/0.4 ML DISP.SYRIN SQ SCH (09:24)
[2020-12-18] MEDS: DEXAMETHASONE SOD PHOSPHATE 4 MG/1 ML VIAL IVPUSH SCH (09:26)
[2020-12-18] MEDS: SODIUM CHLORIDE 0.45%/POT 20 MEQ/1,000 ML INFUS.BAG IV SCH ×4 (09:26→23:05)
[2020-12-18] MEDS: IBUPROFEN 400 MG TABLET (FP) PO PRN ×2 (09:26→23:05)
[2020-12-18] MEDS: guaiFENesin/D-M SUGAR-FREE/ACLHOL-FREE 118 ML BOTTLE PO PRN (09:26)
[2020-12-18] MEDS: BUDESONIDE/FORMETEROL FUMARATE 160/4.5 mcg INHALER IH SCH ×2 (09:35→22:39)
[2020-12-18 09:36] LABS: BASO % 0.2 % (0-2.0); EOS % 0.3 % (0-4.5); HEMATOCRIT 38.7 % (32.4-45.2); HEMOGLOBIN 12.8 GM/dL (10.7-15.3); LYMPH % 26.7 % (8-40); MCH 29.5 pg (25.7-33.7); MCHC 33.1 g/dl (32.0-36.0); MEAN CELL VOLUME 89.2 fl (80-96); MEAN PLT VOLUME 7.4 fl (7.5-11.1); MONO % 8.8 % (3.8-10.2); PLATELET COUNT 400 10^3/uL (134-434); RBC 4.34 M/mm3 (3.60-5.2); RDW 13.5 % (11.6-15.6); WHITE BLOOD COUNT 10.1 K/mm3 (4.0-10.0)
[2020-12-18 09:47] LABS: CHLORIDE 105 mmol/L (98-107); SODIUM 141 mmol/L (136-145)
[2020-12-18 10:03] LABS: CALCIUM 8.1 mg/dL (8.5-10.1)
[2020-12-18 10:04] LABS: ANION GAP 9 MMOL/L (8-16); CO2 27 mmol/L (21-32); GLUCOSE,RANDOM 104 mg/dL (74-106)
[2020-12-18 10:07] LABS: CREATININE 0.6 mg/dL (0.55-1.3); SGOT/AST 32 U/L (15-37)
[2020-12-18 10:08] LABS: BILIRUBIN,TOTAL 0.3 mg/dL (0.2-1); SGPT/ALT 91 U/L (13-61)
[2020-12-18 10:09] LABS: TOT PROT 6.1 g/dl (6.4-8.2)
[2020-12-18 10:10] LABS: ALK PHOS 70 U/L (45-117); LDH 212 U/L (84-246)
[2020-12-19] MEDS: DEXAMETHASONE SOD PHOSPHATE 4 MG/1 ML VIAL IVPUSH SCH (10:59)
[2020-12-19] MEDS: ENOXAPARIN NA (PORCINE) 40 MG/0.4 ML DISP.SYRIN SQ SCH (10:59)
[2020-12-19] MEDS: NORETHINDRONE E ESTRADIOL IRON PO SCH (11:01)
[2020-12-19] MEDS: BUDESONIDE/FORMETEROL FUMARATE 160/4.5 mcg INHALER IH SCH ×2 (11:02→23:00)
[2020-12-19 12:37] VITALS: BMI 38.2
[2020-12-19] MEDS: IBUPROFEN 400 MG TABLET (FP) PO PRN (13:35)
[2020-12-19 21:03] LABS: BASO % 0.2 % (0-2.0); HEMATOCRIT 40.9 % (32.4-45.2); HEMOGLOBIN 13.9 GM/dL (10.7-15.3); LYMPH % 9.1 % (8-40); MCH 29.6 pg (25.7-33.7); MCHC 33.9 g/dl (32.0-36.0); MEAN CELL VOLUME 87.5 fl (80-96); MEAN PLT VOLUME 6.9 fl (7.5-11.1); MONO % 5.6 % (3.8-10.2); NEUT % 85.1 % (42.8-82.8); PLATELET COUNT 495 10^3/uL (134-434); RBC 4.68 M/mm3 (3.60-5.2); RDW 13.7 % (11.6-15.6); WHITE BLOOD COUNT 9.5 K/mm3 (4.0-10.0)
[2020-12-19 21:22] LABS: CALCIUM 8.5 mg/dL (8.5-10.1)
[2020-12-19 21:23] LABS: ALBUMIN 3.2 g/dl (3.4-5.0); BLOOD UREA NITROGEN 13.7 mg/dL (7-18)
[2020-12-19 21:26] LABS: CREATININE 0.8 mg/dL (0.55-1.3)
[2020-12-19 21:27] LABS: BILIRUBIN,TOTAL 0.3 mg/dL (0.2-1); TOT PROT 7.1 g/dl (6.4-8.2)
[2020-12-20] MEDS ORDERED: PT OWN MED DRAWER 7, Y5N ONE (10:06)
[2020-12-20] MEDS: NORETHINDRONE E ESTRADIOL IRON PO SCH (10:09)
[2020-12-20] MEDS: BUDESONIDE/FORMETEROL FUMARATE 160/4.5 mcg INHALER IH SCH ×2 (10:09→22:10)
[2020-12-20] MEDS: DEXAMETHASONE SOD PHOSPHATE 4 MG/1 ML VIAL IVPUSH SCH (10:09)
[2020-12-20] MEDS: ENOXAPARIN NA (PORCINE) 40 MG/0.4 ML DISP.SYRIN SQ SCH (10:09)
[2020-12-20] MEDS: guaiFENesin/D-M SUGAR-FREE/ACLHOL-FREE 118 ML BOTTLE PO PRN (10:10)
[2020-12-20] MEDS: IBUPROFEN 400 MG TABLET (FP) PO PRN (10:10)
[2020-12-20 11:29] LABS: BASO % 0.3 % (0-2.0); EOS % 0.4 % (0-4.5); HEMATOCRIT 41.2 % (32.4-45.2); HEMOGLOBIN 13.9 GM/dL (10.7-15.3); LYMPH % 25.5 % (8-40); MCH 29.7 pg (25.7-33.7); MCHC 33.7 g/dl (32.0-36.0); MEAN CELL VOLUME 88.3 fl (80-96); MEAN PLT VOLUME 6.9 fl (7.5-11.1); MONO % 7.6 % (3.8-10.2); NEUT % 66.2 % (42.8-82.8); PLATELET COUNT 472 10^3/uL (134-434); RBC 4.67 M/mm3 (3.60-5.2); RDW 13.9 % (11.6-15.6); WHITE BLOOD COUNT 10.4 K/mm3 (4.0-10.0)
[2020-12-20 12:00] LABS: ALBUMIN 3.2 g/dl (3.4-5.0); BLOOD UREA NITROGEN 14.2 mg/dL (7-18); CALCIUM 8.8 mg/dL (8.5-10.1)
[2020-12-20 12:04] LABS: CREATININE 0.7 mg/dL (0.55-1.3)
[2020-12-20 12:05] LABS: BILIRUBIN,TOTAL 0.4 mg/dL (0.2-1); TOT PROT 6.9 g/dl (6.4-8.2)
[2020-12-21 06:28] VITALS: TEMP 98.2
[2020-12-21] MEDS: ENOXAPARIN NA (PORCINE) 40 MG/0.4 ML DISP.SYRIN SQ SCH (12:05)
[2020-12-21] MEDS: DEXAMETHASONE SOD PHOSPHATE 4 MG/1 ML VIAL IVPUSH SCH (12:05)
[2020-12-21] MEDS: BUDESONIDE/FORMETEROL FUMARATE 160/4.5 mcg INHALER IH SCH (12:06)
[2020-12-21] MEDS: NORETHINDRONE E ESTRADIOL IRON PO SCH (12:06)
[2020-12-21 15:00] VITALS: BP 132/61; PULSE 74
== END 2020-12-21 20:30 | disposition home or self-care (01) | DRG 177 ==
LOC: JER 15:13 → JERBED 17:44 → J6S 19:43
PROVIDERS: ADMIT Specialist; ATTEND Specialist
PROC: XW033E5 Introduction of Remdesivir Anti-infective into Peripheral Vein, Percutaneous Approach, New Technology Group 5 (ICD-10-PCS; principal; 2020-12-13)
DX: U07.1 COVID-19 (principal); J12.82 Pneumonia due to coronavirus disease 2019; E87.3 Alkalosis; E87.6 Hypokalemia; D72.819 Decreased white blood cell count, unspecified; N20.0 Calculus of kidney; M54.9 Dorsalgia, unspecified; R79.89 Other specified abnormal findings of blood chemistry
CPT/HCPCS: 36415; 71045-TC-FY; 80053; 80076; 82728; 82803; 83615; 83735; 83880; 84484; 84703; 85025; 85379; 85610; 85730; 86140; 93005; 93010; 94010; 94761; 99285-25; C9399; C9803; J1100; J3480; U0003; U0005

== ENCOUNTER 2021-06-15 04:38 | Day surgery (SDC) | payer BC ==
[2021-06-11 12:18] VITALS: BMI 38.7
[2021-06-15] MEDS ORDERED: MIDAZOLAM HCL 2 MG/2 ML SINGLE DOSE VIAL ONE (09:30)
[2021-06-15] MEDS ORDERED: DEXAMETHASONE SOD PHOSPHATE 4 MG/1 ML VIAL ONE (09:31)
[2021-06-15] MEDS ORDERED: ceFAZolin SODIUM 1 GM VIAL IVPB ONE (10:00)
[2021-06-15] MEDS ORDERED: MINERAL OIL/PETROLATUM,WHITE 3.5 GM TUBE ONE (10:10)
[2021-06-15] MEDS ORDERED: METOPROLOL TARTRATE 5 MG/5 ML VIAL ONE (10:10)
[2021-06-15] MEDS ORDERED: ACETAMINOPHEN 1000 MG/100 ML BAG IVPB ONE (10:38)
[2021-06-15] MEDS ORDERED: oxyCODONE HCL 5 MG TABLET PO PRN (13:40)
[2021-06-15] MEDS ORDERED: oxyCODONE HCL 5 MG TABLET ONE (13:41)
[2021-06-15] MEDS ORDERED: oxyCODONE HCL 5 MG TABLET PO ONE (13:42)
[2021-06-15 14:18] VITALS: BP 145/81; PULSE 89; TEMP 97.7
== END 2021-06-15 14:30 | disposition home or self-care (01) ==
LOC: JASU-SURG 04:38
PROVIDERS: ATTEND Obstetrics & Gynecology
PROC: 0UDB7ZX Extraction of Endometrium, Via Natural or Artificial Opening, Diagnostic (ICD-10-PCS; principal; 2021-06-15 09:00)
PROC: 0UJD8ZZ Inspection of Uterus and Cervix, Via Natural or Artificial Opening Endoscopic (ICD-10-PCS; 2021-06-15 09:00)
DX: R87.610 Atypical squamous cells of undetermined significance on cytologic smear of cervix (ASC-US) (principal); E66.9 Obesity, unspecified; Z68.38 Body mass index [BMI] 38.0-38.9, adult
CPT/HCPCS: 81025; 88305-TC; 94760

== ENCOUNTER 2022-02-16 11:42 | Emergency (ER) | payer OTHER, BC ==
[2022-02-16] MEDS ORDERED: IBUPROFEN 600 MG TABLET (FP) PO ONE ×2 (11:59→12:09)
[2022-02-16 12:07] VITALS: BP 159/91; PULSE 92; RESP 16; TEMP 98.4; BMI 38.7
== END 2022-02-16 12:19 | disposition home or self-care (01) ==
LOC: FER 11:42
DX: M25.561 Pain in right knee (principal)
CPT/HCPCS: 99283-25

== ENCOUNTER 2022-09-19 02:16 | Emergency (ER) | payer OTHER ==
[2022-09-19 02:35] VITALS: BP 150/90; PULSE 92; RESP 18; TEMP 98; BMI 38.7
[2022-09-19] MEDS ORDERED: HIV POST EXPOSURE PROPHYLAXIS KIT NR ONE (03:23)
[2022-09-19] MEDS ORDERED: HIV POST EXPOSURE PROPHYLAXIS KIT PO ONE (04:04)
[2022-09-19 04:13] LABS: BASO % 0.2 % (0-2.0); EOS % 0.8 % (0-4.5); HEMATOCRIT 37.9 % (32.4-45.2); HEMOGLOBIN 12.7 GM/dL (10.7-15.3); LYMPH % 24.8 % (8-40); MCH 29.6 pg (25.7-33.7); MCHC 33.6 g/dl (32.0-36.0); MEAN PLT VOLUME 7.4 fl (7.5-11.1); MONO % 6.5 % (3.8-10.2); NEUT % 67.7 % (42.8-82.8); PLATELET COUNT 315 10^3/uL (134-434); RBC 4.31 M/mm3 (3.60-5.2); RDW 14.5 % (11.6-15.6); WHITE BLOOD COUNT 9.9 K/mm3 (4.0-10.0)
[2022-09-19 04:31] LABS: POTASSIUM 4.1 mmol/L (3.5-5.1)
[2022-09-19 04:33] LABS: CALCIUM 9.2 mg/dL (8.5-10.1)
[2022-09-19 04:34] LABS: ALBUMIN 3.8 g/dl (3.4-5.0)
[2022-09-19 04:37] LABS: CREATININE 0.6 mg/dL (0.55-1.3)
[2022-09-19 04:39] LABS: BILIRUBIN,TOTAL 0.2 mg/dL (0.2-1); TOT PROT 7.4 g/dl (6.4-8.2)
[2022-09-19 12:09] LABS: HIV INTERPRETATION NEGATIVE (NEGATIVE)
== END 2022-09-19 05:04 | disposition home or self-care (01) ==
LOC: JER 02:16
DX: B19.10 Unspecified viral hepatitis B without hepatic coma (principal); Z77.21 Contact with and (suspected) exposure to potentially hazardous body fluids
CPT/HCPCS: 36415; 80053; 84703; 85025; 86705; 87389; 87517; 87522; 99283-25

== ENCOUNTER 2023-01-16 22:36 | Inpatient (IN) | payer BC, OTHER ==
[2023-01-16] MEDS ORDERED: ONDANSETRON 4 MG/2 ML VIAL IVPUSH ONE (23:09)
[2023-01-16] MEDS ORDERED: KETOROLAC TROMETHAMINE 30 MG/1 ML VIAL IVPUSH ONE (23:09)
[2023-01-16] MEDS ORDERED: SODIUM CHLORIDE 1,000 ML IV STA (23:09)
[2023-01-16] MEDS ORDERED: ONDANSETRON 4 MG/2 ML VIAL ONE (23:11)
[2023-01-16] MEDS ORDERED: KETOROLAC TROMETHAMINE 30 MG/1 ML VIAL ONE (23:11)
[2023-01-16 23:19] LABS: BASO % 0.5 % (0-2.0); EOS % 0.7 % (0-4.5); HEMATOCRIT 40.1 % (32.4-45.2); HEMOGLOBIN 13.2 GM/dL (10.7-15.3); LYMPH % 13.2 % (8-40); MCH 28.8 pg (25.7-33.7); MCHC 32.8 g/dl (32.0-36.0); MEAN CELL VOLUME 87.8 fl (80-96); MEAN PLT VOLUME 7.2 fl (7.5-11.1); MONO % 7.3 % (3.8-10.2); NEUT % 78.3 % (42.8-82.8); PLATELET COUNT 302 10^3/uL (134-434); RBC 4.57 M/mm3 (3.60-5.2); RDW 14.5 % (11.6-15.6)
[2023-01-16 23:25] LABS: INR 1.15 (0.83-1.09); PROTHROMBIN TIME (PATIENT) 13.3 SEC (9.7-13.0)
[2023-01-16 23:28] LABS: ACTIVATED PTT 29.7 SECONDS (25.2-36.5)
[2023-01-16 23:29] LABS: POTASSIUM 4.2 mmol/L (3.5-5.1)
[2023-01-16 23:31] LABS: ALBUMIN 3.8 g/dl (3.4-5.0); BLOOD UREA NITROGEN 18.4 mg/dL (7-18); CALCIUM 9.1 mg/dL (8.5-10.1)
[2023-01-16 23:36] LABS: BILIRUBIN,TOTAL 0.3 mg/dL (0.2-1); TOT PROT 7.7 g/dl (6.4-8.2)
[2023-01-16 23:45] LABS: EPI CELLS 26 /uL (0-25.1); HYALINE CASTS 0 /uL (0-3.1); PH,URINE 6.5 (5.0-8.0); URINE APPEARANCE CLEAR; URINE BACTERIA 496 /uL (0-1359); URINE BILIRUBIN NEGATIVE (NEGATIVE); URINE COLOR YELLOW; URINE GLUCOSE (UA) NEGATIVE (NEGATIVE); URINE KETONE NEGATIVE (NEGATIVE); URINE LEUK ESTERASE 1+ (NEGATIVE); URINE NITRITE NEGATIVE (NEGATIVE); URINE PROTEIN NEGATIVE (NEGATIVE); URINE RBC 772 /uL (0-23.9); URINE UROBILINOGEN 0.2 mg/dL (0.2-1.0); URINE WBC 22 /uL (0-25.8)
[2023-01-16] MEDS ORDERED: morphine CARPU-JECT 4 MG/1 ML DISP.SYRIN IVPUSH ONE (23:54)
[2023-01-16] MEDS ORDERED: morphine SULFATE 4 MG/ML VIAL ONE (23:55)
[2023-01-17] MEDS ORDERED: morphine SULFATE 4 MG/ML VIAL ONE ×5 (01:32→18:19)
[2023-01-17] MEDS ORDERED: morphine CARPU-JECT 4 MG/1 ML DISP.SYRIN IVPUSH ONE (01:32)
[2023-01-17] MEDS ORDERED: TAMSULOSIN HCL 0.4 MG CAP PO ONE (02:40)
[2023-01-17] MEDS ORDERED: ACETAMINOPHEN 325 MG TABLET (FP) PO PRN (02:41)
[2023-01-17] MEDS ORDERED: TAMSULOSIN HCL 0.4 MG CAP ONE ×2 (02:42→07:56)
[2023-01-17] MEDS: SODIUM CHLORIDE 1,000 ML IV SCH (03:26)
[2023-01-17] MEDS: morphine SULFATE 4 MG/ML VIAL IVPUSH PRN ×5 (04:26→22:49)
[2023-01-17 08:11] LABS: BASO % 0.4 % (0-2.0); EOS % 0.5 % (0-4.5); HEMATOCRIT 38.8 % (32.4-45.2); HEMOGLOBIN 12.5 GM/dL (10.7-15.3); LYMPH % 18.8 % (8-40); MCH 28.9 pg (25.7-33.7); MCHC 32.3 g/dl (32.0-36.0); MEAN CELL VOLUME 89.5 fl (80-96); MEAN PLT VOLUME 8.4 fl (7.5-11.1); MONO % 7.9 % (3.8-10.2); NEUT % 72.4 % (42.8-82.8); PLATELET COUNT 256 10^3/uL (134-434); RBC 4.33 M/mm3 (3.60-5.2); RDW 14.3 % (11.6-15.6); WHITE BLOOD COUNT 10.7 K/mm3 (4.0-10.0)
[2023-01-17 08:25] LABS: POTASSIUM 4.5 mmol/L (3.5-5.1)
[2023-01-17 08:37] LABS: CALCIUM 8.4 mg/dL (8.5-10.1)
[2023-01-17] MEDS: TAMSULOSIN HCL 0.4 MG CAP PO SCH (08:50)
[2023-01-17] MEDS ORDERED: CEFTRIAXONE 1 GM in DEXTROSE 5%-WATER - 50 ML IVPB SCH (12:15)
[2023-01-17] MEDS ORDERED: CEFTRIAXONE 1 GM/50 ML BAG ONE (12:57)
[2023-01-17] MEDS ORDERED: ONDANSETRON 4 MG/2 ML VIAL ONE (13:05)
[2023-01-17] MEDS: ONDANSETRON 4 MG/2 ML VIAL IVPUSH PRN ×2 (13:15→22:52)
[2023-01-18 02:41] VITALS: BMI 39.0
[2023-01-18] MEDS: morphine SULFATE 4 MG/ML VIAL IVPUSH PRN (02:45)
[2023-01-18] MEDS: SODIUM CHLORIDE 1,000 ML IV SCH (06:17)
[2023-01-18] MEDS ORDERED: LIDOCAINE HCL/PF 2% SDV 5ML VIAL ONE (07:25)
[2023-01-18] MEDS ORDERED: PROPOFOL 20 ML ONE (07:25)
[2023-01-18] MEDS ORDERED: MIDAZOLAM HCL 2 MG/2 ML SINGLE DOSE VIAL ONE (07:27)
[2023-01-18] MEDS ORDERED: SCOPOLAMINE HYDROBROMIDE 1 PATCH PATCH.TD72 ONE (07:48)
[2023-01-18] MEDS ORDERED: cefTRIAXone SODIUM 1 GM VIAL IVPB ONE (08:00)
[2023-01-18] MEDS ORDERED: KETOROLAC TROMETHAMINE 30 MG/1 ML VIAL ONE (08:18)
[2023-01-18] MEDS ORDERED: ONDANSETRON 4 MG/2 ML VIAL ONE (08:18)
[2023-01-18] MEDS ORDERED: ONDANSETRON 4 MG/2 ML VIAL IVPUSH PRN (08:33)
[2023-01-18] MEDS ORDERED: PROMETHAZINE HCL 25 MG/1 ML VIAL IVPB PRN (08:33)
[2023-01-18] MEDS ORDERED: ACETAMINOPHEN 1000 MG/100 ML BAG IVPB ONE (08:35)
[2023-01-18] MEDS ORDERED: SODIUM CHLORIDE 1,000 ML IV SCH (08:39)
[2023-01-18] MEDS ORDERED: ACETAMINOPHEN 325 MG TABLET (FP) PO PRN (08:39)
[2023-01-18] MEDS ORDERED: morphine SULFATE 4 MG/ML VIAL IVPUSH PRN (08:39)
[2023-01-18] MEDS ORDERED: LACTATED RINGERS SOLUTION 1,000 ML IV SCH (08:45)
[2023-01-18] MEDS ORDERED: ACETAMINOPHEN INJECTION 100 ML IVPB ONE (08:59)
[2023-01-18] MEDS: TAMSULOSIN HCL 0.4 MG CAP PO SCH (09:58)
[2023-01-18] MEDS ORDERED: CEFTRIAXONE 1 GM in DEXTROSE 5%-WATER - 50 ML IVPB SCH (10:00)
[2023-01-18 16:54] VITALS: BP 130/55; PULSE 82; RESP 20; TEMP 98.1
== END 2023-01-18 17:42 | disposition home or self-care (01) | DRG 661 ==
LOC: JER 22:36 → JERBED 01-17 01:54 → J8W 01-17 21:48
PROVIDERS: ADMIT Specialist; ATTEND Specialist
PROC: 0T768DZ Dilation of Right Ureter with Intraluminal Device, Via Natural or Artificial Opening Endoscopic (ICD-10-PCS; principal; 2023-01-18 08:00)
PROC: BT1DZZZ Fluoroscopy of Right Kidney, Ureter and Bladder (ICD-10-PCS; 2023-01-18 08:00)
DX: N13.2 Hydronephrosis with renal and ureteral calculous obstruction (principal); M54.50 Low back pain, unspecified
CPT/HCPCS: 36415; 74176-TC; 76000-TC-FY; 80048; 80053; 81003; 83690; 83735; 84703; 85025; 85610; 85730; 86850; 86900; 86901; 87086; 93005; 93010; 94760; 99285-25; C1758; C2617

== ENCOUNTER 2023-12-12 04:40 | Day surgery (SDC) | payer BC, OTHER ==
[2023-12-09 11:19] VITALS: BMI 38.7
[2023-12-12] MEDS ORDERED: PROPOFOL 20 ML ONE (12:56)
[2023-12-12] MEDS ORDERED: MIDAZOLAM HCL 2 MG/2 ML SINGLE DOSE VIAL ONE (12:56)
[2023-12-12] MEDS ORDERED: SUCCINYLCHOLINE CHLORIDE 200 MG/10 ML SYRINGE ONE (12:56)
[2023-12-12] MEDS: ceFAZolin SODIUM 1 GM VIAL IVPB ONE (13:35)
[2023-12-12] MEDS ORDERED: ONDANSETRON 4 MG/2 ML VIAL ONE ×2 (13:54→14:49)
[2023-12-12] MEDS ORDERED: DEXAMETHASONE SOD PHOSPHATE 4 MG/1 ML VIAL ONE (13:54)
[2023-12-12] MEDS ORDERED: KETOROLAC TROMETHAMINE 30 MG/1 ML VIAL ONE (13:54)
[2023-12-12] MEDS ORDERED: LIDOCAINE HCL/PF 2% SDV 5ML VIAL ONE (13:54)
[2023-12-12] MEDS ORDERED: ceFAZolin SODIUM 1 GM VIAL ONE (13:54)
[2023-12-12] MEDS ORDERED: oxyCODONE HCL 5 MG TABLET PO PRN (14:01)
[2023-12-12] MEDS: ONDANSETRON 4 MG/2 ML VIAL IVPUSH PRN (14:52)
[2023-12-12] MEDS: LACTATED RINGERS SOLUTION 1,000 ML IV SCH (14:55)
[2023-12-12] MEDS ORDERED: ACETAMINOPHEN INJECTION 100 ML IVPB ONE (15:06)
[2023-12-12] MEDS ORDERED: PROMETHAZINE HCL 25 MG/1 ML VIAL ONE (15:06)
[2023-12-12] MEDS: PROMETHAZINE HCL 25 MG/1 ML VIAL IVPB PRN (15:09)
[2023-12-12] MEDS: ACETAMINOPHEN 1000 MG/100 ML BAG IVPB ONE (15:17)
[2023-12-12 17:04] VITALS: BP 130/52; PULSE 72; RESP 16; TEMP 97.6
== END 2023-12-12 18:33 | disposition home or self-care (01) ==
LOC: JASU-SURG 04:40
PROVIDERS: ATTEND Obstetrics & Gynecology
PROC: 0UJH8ZZ Inspection of Vagina and Cul-de-sac, Via Natural or Artificial Opening Endoscopic (ICD-10-PCS; 2023-12-12)
PROC: 0UB98ZZ Excision of Uterus, Via Natural or Artificial Opening Endoscopic (ICD-10-PCS; principal; 2023-12-12 11:00)
DX: C53.0 Malignant neoplasm of endocervix (principal); N71.1 Chronic inflammatory disease of uterus
CPT/HCPCS: 81025; 88305-TC; 88341-TC; 88342-TC; 94760; J0131

== ENCOUNTER 2024-05-02 17:40 | Emergency (ER) | payer BC, OTHER ==
[2024-05-02 17:58] VITALS: BP 140/79; PULSE 84; RESP 20; TEMP 98.4; BMI 39.5
[2024-05-02 18:19] LABS: HEMOGLOBIN 13.6 G/dL (10.7-15.3); MCH 29.5 pg (25.7-33.7); MEAN CELL VOLUME 89.1 fl (80-96); MEAN PLT VOLUME 7.5 fl (7.5-11.1); PLATELET COUNT 221.8 10^3/uL (134-434); RDW 13.8 % (11.6-15.6); WHITE BLOOD COUNT 6.6 10^3/uL (4.0-10.8)
[2024-05-02 18:46] LABS: ALBUMIN 4.3 g/dl (3.4-5.0); BILIRUBIN,TOTAL 0.3 mg/dl (0.2-1); CALCIUM 9.4 mg/dl (8.5-10.1); CREATININE 0.6 mg/dl (0.6-1.3); POTASSIUM 3.6 mmol/L (3.5-5.1); TOT PROT 7.1 g/dl (6.4-8.2)
== END 2024-05-02 19:06 | disposition home or self-care (01) ==
LOC: FER 17:40
DX: R07.89 Other chest pain (principal)
CPT/HCPCS: 36415; 71045-TC-FY; 80053; 84484; 85027; 93005; 99285-25